=== PATIENT | female | born 1995 | race Caucasian/White ===

== ENCOUNTER 2020-07-07 22:15 | Emergency (ER) | payer BC, OTHER ==
--- OUTSIDE RECORDS SUMMARY | 2020-07-07 22:17 | XMS REPORT | Continuity of Care Document ---
:1995 Author Organization [facility] t Address [address] [place] [address] Care Team Providers Name Role Phone Melvin LABOY T Primary Care Physician Anmol Attending Clinician Unavailable Problems Condition Condition Condition Status Onset Resolution Last Treating Co mments Source Name Details Category Date Date Treatment Clinician Date Generalize Generalize Disease Active [facility] d d 5-17 [facility] abdominal abdominal 00:00: st pain pain 00 Intussusce Intussusce Disease Active [facility] j[facility]ae ption ption 5-15 [facility] intestine intestine 00:00: st 00 Abnormal Abnormal Disease Active [place] on finding on finding on 5-15 [facility] imaging imaging 00:00: st 00 Periumbili Periumbili Disease Active H jenae dayo dayo 5-15 [facility] abdominal abdominal 00:00: st pain pain 00 Functional Functional Disease Active [facility] j[facility] diarrhea diarrhea 5-15 [facility] i 00:00: st 00 Nausea Nausea Disease Active [place] 5-15 [facility] 00:00: st 00 Interstiti Interstiti Disease Active H j[facility] al al 5-15 [facility] cystitis cystitis 00:00: st 00 Migraine Migraine Disease Active [place] on 5-15 [facility] 00:00: st 00 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 00:00: st 00 Allergies, Adverse Reactions, Alerts Allergy Allergy Status Severity Reaction(s) Onset Inactive Treating Comm ents Source Name Type Date Date Clinician Tramadol Propensi Active GI Severe [place] n ty to Intolerance 5-15 Vomiting Met hodi adverse 00:00: st reaction 00 s to drug Family History Family Member Diagnosis Comments Start Date Stop Date Source Natural mother Cancer [facility] Natural mother Heart disease [facility] Religion Social History Social Habit Start Date Stop Date Quantity Comments Source History of Cigarette Smoker [place] [facility] tobacco use Alcohol intake 2016-09-06 2016-09-06 Current drinker [place] on Religion 00:00:00 00:00:00 of alcohol (finding) Sex [birth year] Arian Ramires ethodist 00:00:00 00:00:00 Smoking Status Start Date Stop Date Source Former smoker 2016-09-06 00:00:00 2016-09-06 00:00:00 [facility] Religion Medications Ordered Filled Start Stop Current Ordering Indication Dosage Frequency Signature Comments Components Source Medication Medication Date Date Medication? Clinician (SIG) Name Name dicyclomine Yes 20mg Q6H Take 20 mg Don (BENTYL) 10 5-20 by mouth Meth jun MG capsule 13:55: every 6 st 05 (six) hours as needed. ALPRAZolam Yes .25mg QD Take 0.25 [place] (XANAX) 5-20 mg by [facility] 0.25 MG 13:55: mouth st tablet 05 nightly as needed for anxiety. norethindro Yes 1{tbl} QD Take 1 [place] ne-ethin 5-20 tablet by [facility] i estradiol 13:55: mouth st (CYCLAFEM 05 daily. , ,) 1-35 mg-mcg per tablet venlafaxine Yes 75mg QD Take 75 mg Don (EFFEXOR) 5-20 by mouth Method i 75 MG 13:55: daily. st tablet 05 METH/MEBLUE Yes 1{capsu Take 1 [place] /SOD 5-20 le} capsule by [facility] PHOS/PSAL/H 13:55: mouth as st YOS (URIBEL 05 needed. ORAL) acyclovir Yes Q.5D Take by [place] (ZOVIRAX) 5-20 mouth 2 [facility] 200 MG 13:55: (two) st capsule 05 times a day as needed. BIFIDOBACTE Yes 1{capsu QD Take 1 [place] RIUM 5-20 le} capsule by [facility] INFANTIS 13:55: mouth st (ALIGN 05 daily. ORAL) Procedures This patient has no known procedures. Plan of Care Planned Activity Planned Date Details Comments Source Future Scheduled 2020-10-19 INFLUENZA VACCINE [facility] n [facility] Test 00:00:00 [code = INFLUENZA VACCINE] Future Scheduled 2014 Screening for [facility] Test 00:00:00 malignant neoplasm of cervix (procedure) [code = 186587816] Future Scheduled 2009 COVID-19 VACCINE (1) Renuka callejas Religion Test 00:00:00 [code = COVID-19 VACCINE (1)] Results Test Description Test Time Test Comments Results Result Comments Source Chemistry 2017-05-22 13:36:00 Test Item Value Reference Range Interpretation Comme nts Chemistry (test code = 139 mmol/L 136-145 N NA-T) Chemistry (test code = K-T) 4.0 mmol/L 3.5-5.1 N Chemistry (test code = CL) 106 mmol/L 98-107 N Chemistry (test code = CO2) 22 mmol/L 22-29 N Chemistry (test code = 15 mmol/L 10-20 N ANGP) Chemistry (test code = BUN) 9 mg/dL 7.0-18.7 N Chemistry (test code = 0.73 mg/dL 0.6-1.1 N CREATT) Chemistry (test code = Greater than 90 R eference Range for Estimated EGFRMDRD) GFR: Greater than 90 mL/min/1.73 m2NOTE:The MDRD equation has not been valida cecilia for use with theelderly (over 70 years of age), women, patients with serious comorbid condit ion or persons with extremes o fbody size, muscle mass, or nutritional status. Chemistry (test code = 86 mg/dL 70-105 N GLU-T) Chemistry (test code = CA) 10.0 mg/dL 7.8-10.44 N Chemistry (test code = 0.5 mg/dL 0.2-1.2 N TBILI) Chemistry (test code = TP) 8.7 g/dL 6.0-8.3 H Chemistry (test code = ALB) 4.7 g/dL 3.5-5.0 N Chemistry (test code = 4.0 g/dL 2.4-3.5 H GLOB) Chemistry (test code = AG) 1.2 g/dL 1.2-2.2 N Chemistry (test code = ALP) 50 U/L 40-150 N Chemistry (test code = AST) 25 U/L 5-34 N Chemistry (test code = ALT) 18 U/L 8-55 N [id number] 13:36:00 Test Item Value Reference Range Interpretation Comments Chemistry (test code = LIP) 20 U/L 8-78 N [id number] 13:30:00 Test Item Value Reference Range Interpretation Comments Hematology (test code = WBCT) 10.1 thou/uL 4.8-10.8 N Hematology (test code = RBCT) 4.66 mill/uL 4.20-5.40 N Hematology (test code = HGBT) 14.4 g/dL 12.0-16.0 N Hematology (test code = HCTT) 42.2 % 36.0-47.0 N Hematology (test code = MCV) 90.5 fl 81.0-99.0 N Hematology (test code = MCH) 30.9 pg 27.0-31.0 N Hematology (test code = MCHC) 34.2 g/dL 32.0-36.0 N Hematology (test code = RDW) 11.6 % 11.5-14.5 N Hematology (test code = PLTT) 349 thou/uL 130-400 N Hematology (test code = MPV) 8.8 fL 7.4-10.4 N Hematology (test code = NE) 55 % 42-75 N Hematology (test code = BA) 3 % 5-11 L Hematology (test code = LY) 34 % 21-51 N Hematology (test code = MO) 4 % 0-10 N Hematology (test code = EO) 3 % 0-10 N Hematology (test code = BAS) 1 % 0-2 N [id number] 13:20:00 Test Item Value Reference Range Interpretation Comments Urinalysis (test code = UACLR) Yellow Yellow Urinalysis (test code = UACLY) Clear Clear Urinalysis (test code = SPGR) 1.025 1.005-1.030 N Urinalysis (test code = LESTER) 6.0 5.0-9.0 N Urinalysis (test code = UALEU) Negative Negative Urinalysis (test code = UANIT) Negative Negative Urinalysis (test code = Negative mg/dL Neg-Trace PROUADIP) Urinalysis (test code = GLUCU) Negative mg/dL Negative Urinalysis (test code = KETU) Negative mg/dL Negative Urinalysis (test code = 0.2 mg/dL 0.2-1.0 UAUROB) Urinalysis (test code = UABIL) Negative Negative Urinalysis (test code = UABLD) Small Negative A Urine Source: Urine Clean [id number] 13:20:00 Test Item Value Reference Range Interpretation Comments Urinalysis (test code = 0-3 HPF 0-3 UARBC) Urinalysis (test code = 0-3 HPF 0-3 UAWBC) Urinalysis (test code = 4-6 HPF 0-3 A UASQUAM) Urinalysis (test code = NONE SEEN HPF 0-3 UATRANS) Urinalysis (test code = 1+ HPF None Seen A UABAC) Urinalysis (test code = Rare HPF None Seen UAYEAST) Urinalysis (test code = 0-3 HYALINE CAST LPF 0-3 Hyaline UACAST) Urine Source: Urine Clean [id number] 13:05:00 Test Item Value Reference Range Interpretation Comments Urinalysis (test Negative Negative Method of s ensitivity- code = BHCGUT) INDETERMINANT : results should be repea cecilia after 48-72 hrs POS ITIVE: results may be detected as early as 1 day after the first missed period A dilute urine specimen may no t contain representativel evels of hCG.If pregnanc y is still suspected, a fi rst morning urinespecimen O R a random blood specimen should be obtainedfrom e patient 48-72 hours lat er and re-tested. Urinalysis (test 1.019 1.002-1.036 N code = PREGUSG)
--- NOTE | 2020-07-07 23:23 | ER ---
Nurse's Notes [facility] Name: Sivan Landeros Age: 24 yrs Sex: Female : 1995 Arrival Date: 07/07/2020 Time: 22:15 Bed Waiting Private MD: Diagnosis: Presentation: 07/07 23:02 Chief complaint: Patient states: she has been having abdominal pain for several weeks bb but noticed during intercourse it was very uncomfortable and she started having vaginal bleeding. Coronavirus screen: At this time, the client does not indicate any symptoms associated with coronavirus-19. Ebola Screen: No symptoms or risks identified at this time. Initial Sepsis Screen: Does the patient meet any 2 criteria? No. Patient's initial sepsis screen is negative. Does the patient have a suspected source of infection? No. Patient's initial sepsis screen is negative. Risk Assessment: Do you want to hurt yourself or someone else? Patient reports no desire to harm self or others. Onset of symptoms was July 07, 2020. 23:02 Method Of Arrival: Ambulatory bb 23:02 Acuity: JERMAN 3 bb 23:22 Note pt notified registration that she did not want to wait and would come back if the bb pain worsened so pt left the ED. Triage Assessment: 23:12 General: Appears in no apparent distress. slender, Behavior is calm, cooperative. Pain: bb Complains of pain in abdomen. Neuro: Level of Consciousness is awake, alert, obeys commands, Oriented to person, place, time, situation. Cardiovascular: No deficits noted. Respiratory: Respiratory effort is even, unlabored, Respiratory pattern is regular. GI: Reports lower abdominal pain. : Reports vaginal bleeding that is. Derm: Skin is pink, warm \T\ dry. Musculoskeletal: Circulation, motion, and sensation intact. 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 - Social history:: Smoking status: Patient denies any tobacco usage or history of. Patient uses alcohol, occasionally. Vital Signs: 23:02 BP 130 / 83; Pulse 82; Resp 16 S; Temp 98.4(O); Pulse Ox 99% on R/A; Weight 48.08 kg bb (R); Height 5 ft. 4 in. (162.56 cm) (R); Pain 5/10; 23:02 Body Mass Index 18.19 (48.08 kg, 162.56 cm) bb ED Course: 22:15 Patient arrived in ED. cl3 23:04 Triage completed. bb 23:12 Arm band placed on Patient placed in waiting room, Patient notified of wait time. bb Administered Medications: No medications were administered Outcome: 23:23 Patient left the ED. bb Signatures: Milli London, RN RN bb Makayla Trotter cl3
[2020-07-07 23:32] VITALS: BP 130/83; TEMP 98.4; O2SAT 99
== END 2020-07-07 23:23 | disposition left against medical advice (07) ==
LOC: ER 22:15
DX: Z53.21 Procedure and treatment not carried out due to patient leaving prior to being seen by health care provider (principal)
CPT/HCPCS: 99281